=== PATIENT | male | born 1985 | race Caucasian/White ===

== ENCOUNTER 2023-12-29 08:11 | Emergency (ER) | payer BC, SELFPAY ==
[2023-12-29 08:20] VITALS: BP 159/85; PULSE 70; RESP 14; TEMP 36.7; O2SAT 100
--- NOTE | 2023-12-29 08:20 | ED.BACK ---
HPI - Back Pain/Injury General Chief Complaint: Back Pain/Injury Stated Complaint: Back pain Time Seen by Provider: 12/29/23 08:25 Source: patient, RN notes reviewed and old records reviewed Mode of arrival: ambulatory Limitations: no limitations History of Present Illness HPI Narrative: 38 year old male who presents to [facility] care with complaints of one week duration of lower back pain with no radiation of pain down buttock or legs or any voiced tingling or numbness of lower extremities. He reports that he was outside with kids and he bent over to get some snow and he felt a pop in his lower back and it took him to his knees. He reports that he did see his chiropractor this week and he did feel better till he bent over yesterday and began hurting again. Patient denies any difficulty with bowel or bladder function or any saddle parasthesia. Patient has been taking some Tylenol and Ibuprofen for his discomfort,has not yet taken any thing this morning for his discomfort. MD elicited complaint: back pain Pertinent past history: prior back pain Onset (ago): week(s) (1) Pain scale (0-10): 9 Similar Symptoms Previously: Yes Quality: sharp and throbbing Treatments prior to arrival: NSAIDS and acetaminophen Related Data Allergies Allergy/AdvReac Type Severity Reaction Status Date / Time No Known Allergies Allergy Mild Verified 06/29/22 15:15 Review of Systems Review of Systems: CONSTITUTIONAL: Denies fever, chills, or sweats. CARDIOVASCULAR: Denies chest pain, palpitations, or edema. RESPIRATORY: Denies cough or dyspnea. GASTROINTESTINAL: Denies abdominal pain, nausea, vomiting, or diarrhea. GENITOURINARY: Denies dysuria or hematuria. SKIN: Denies rash or itching. MUSCULOSKELETAL: Reports lower back pain. Joint pain or myalgia. NEUROLOGIC: Denies headache, numbness, or weakness. 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 There is no relevant family history pertinent to the presenting complaint Exam Narrative: GENERAL: Well-appearing, well-nourished, and in no acute distress. HEAD: Normocephalic, atraumatic. EYES: PERRLA and EOMI. NECK: Supple. No lymphadenopathy. CHEST: Clear to auscultation. No respiratory distress. SAO2 100% on room air HEART: Regular rate and rhythm. Distal pulses palpable and equal, cap refill <3 seconds ABDOMEN: Soft, nontender, nondistended, normal active bowel sounds, no palpable or pulsatile masses. No CVA tenderness MUSCULOSKELETAL: Normal range of motion and strength in all extremities; 5/5 strength with hip flexion and extension, dorsiflexion and extension, knee flexion and extension, plantar flexion and extension. Normal sensation in dermatomal distributions with sensitivity to light touch and pain. No midline back tenderness to palpation. No paraspinal tenderness. Transfers from lying to sitting to standing cautiously. Pain mainly over lower back with SI tenderness on palpation bilaterally SKIN: Warm, dry, no rash. No ecchymosis, erythema, open wounds to back. NEURO: No focal deficits. Alert and oriented x3. Reflexes intact. Normal gait. PSYCH: Normal mood and affect Course Course Emergency Course: Patient is aware of diagnosis, understands
== END 2023-12-29 08:43 | disposition home or self-care (01) ==
PROVIDERS: Emergency Provider Registered Nurse
DX: S39.012A Strain of muscle, fascia and tendon of lower back, initial encounter (principal); X50.9XXA Other and unspecified overexertion or strenuous movements or postures, initial encounter
CPT/HCPCS: 99213; G0463

== ENCOUNTER → 2024-01-01 08:50 | Outpatient (CLI) | payer BC, SELFPAY ==
--- NOTE | ~2024-01-01 | XR_ITS ---
EXAMINATION: XR lumbar spine 2-3V DATE: 01/01/2024 09:00 INDICATION: Low back pain TECHNIQUE: Anteroposterior and lateral views of the lumbar spine, and cone-down lateral view of the l umbosacral junction were obtained. COMPARISON: 11/29/2009 FINDINGS: Bone alignment is normal. There is no fracture. The vertebral body heights and intervertebr al disc spaces are maintained. There is mild facet joint osteoarthritis at L5-S1. IMPRESSION: 1. Mild lumbar spondylosis without acute findings. Reviewed, dictated and finalized at location L. 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
== END ==
PROVIDERS: PCP Internal Medicine; Visit Provider Nurse Practitioner
DX: M47.896 Other spondylosis, lumbar region (principal)
CPT/HCPCS: 72100

== ENCOUNTER 2024-01-14 10:05 | Outpatient (CLI) | payer BC, SELFPAY ==
--- NOTE | 2024-02-01 12:24 | WPDHOMESLEEP ---
Sleep Study - Home Unattended Date of Study: 01/14/24 Ordering Provider: Ann Aragon NP Interpreting Provider: Haydee Joyner MD Home Sleep Study Type: Watch PAT Height: 1.88 m Weight: 97.522 kg Body Mass Index: 27.6 Neck Circumference (inches): 15 [place]: 4 Reason for Sleep Study Daytime somnolence, snoring, hears him gasping at night Sleep History Sujit Dorsey II is a 38-year-old z[place] [facility] for complaints of excessive daytime sleepiness, snoring and report of his hearing him gasp during the night. The patient has back pain worsened by driving. No sleep survey was available to review to complete his sleep history. [facility] Past Medical History Medical History Allergies Family History Family History Grandparent Diabetes mellitus Father Hypertension Heart problem Social History Social History Smoking status: Never smoker Alcohol intake: never Substance use: never Lack of Transportation: No Lack of Food: Never True Current Housing: I Have Housing Concerned About Future Housing: No Difficulty Paying Gas/Electric Bills: No Difficulty Paying for Meds: No Currently Unemployed: No Education: Trade/Vocational Certificate Difficulty w/ Childcare or Family Care: No Living arrangements: with family Occupation/Education: occupation 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 Prior to using the device, the patient received verbal and written instructions for its application and was provided with the help desk phone number for additional telephonic instruction with 24-hour availability of qualified personnel to answer questions. Sleep Architecture The total recording time was 2 hours and 4 minutes with 49 minutes of sleep and a sleep latency of 16 minutes. A home sleep test needs a minimum of 4 hours in order to to be acceptable for interpretation. Respiratory Analysis NA Oximetry Data Lowest saturation obtained was 83%. Snoring Profile Snoring was present. Cardiac Profile No data is available. Assessment and Plan Assessment and Plan (1) Daytime somnolence: Code(s): R40.0 - Somnolence Status: Acute Assessment and Plan: This home sleep test using WatchPat on 01/14/2024 is not sufficient in length to evaluate for sleep disordered breathing or other sleep abnormalities. The length of time recording was 2 hours and 4 minutes with 49 minutes of sleep. A minimum of 4 hours of sleep is required to have enough data to interpret. Data The data obtained during this sleep study is NOT adequate for interpretation. Certification This sleep study has been reviewed by a board certified sleep medicine physician.
[2024-02-01 12:32] VITALS: BMI 27.6
== END 2024-01-18 15:00 | disposition home or self-care (01) ==
PROVIDERS: PCP Internal Medicine; Visit Provider Nurse Practitioner
DX: R40.0 Somnolence (principal)
CPT/HCPCS: 95806

== ENCOUNTER 2024-04-19 08:11 | Emergency (ER) | payer BC, SELFPAY ==
[2024-04-19 08:18] VITALS: BP 137/98; PULSE 108; RESP 20; TEMP 37.1; O2SAT 100
--- NOTE | 2024-04-19 08:35 | ED.BACK ---
HPI - Back Pain/Injury General Chief Complaint: Back Pain/Injury Stated Complaint: Back pain Time Seen by Provider: 04/19/24 08:30 Source: patient, RN notes reviewed and old records reviewed Mode of arrival: ambulatory Limitations: no limitations History of Present Illness HPI Narrative: 38 year old male who presents to [facility] care with complaints of bilateral lower back pain with most pain to the left side of his lower back, denies any paraspinal tenderness or any radiation of his pain down his legs. Patient has history of prior episodes of lower back since he was 21 years old. Patient reports that he has some muscle relaxers at home which he has cut in 4th and has been taking Tylenol and Ibuprofen for his pain. Pain is aggravated by any movement and bending.Patient denies any difficulty passing urine or stools, denies any saddle paraesthesia. Patient reports that he sees chiropractor twice a month and has had previous PT. MD elicited complaint: back pain Pertinent past history: prior back pain Onset (ago): day(s) (increased in past 2 days.) Severity: severe Similar Symptoms Previously: Yes Quality: sharp and aching Exacerbating factors: movement, walking and other (bending) Treatments prior to arrival: NSAIDS and acetaminophen Related Data Home Medications Medication Instructions Recorded Confirmed acetaminophen 500 mg tablet 500 mg PO Q6H PRN Back Pain 01/01/24 01/01/24 (Tylenol Extra Strength) Allergies Allergy/AdvReac Type Severity Reaction Status Date / Time No Known Allergies Allergy Mild Verified 01/01/24 08:31 Review of Systems Review of Systems: CONSTITUTIONAL: Denies fever, chills, or sweats. CARDIOVASCULAR: Denies chest pain, palpitations, or edema. RESPIRATORY: Denies cough or dyspnea. GASTROINTESTINAL: Denies abdominal pain, nausea, vomiting, or diarrhea. GENITOURINARY: Denies dysuria or hematuria. SKIN: Denies rash or itching. MUSCULOSKELETAL: Reports bilateral lower back pain. or myalgia. NEUROLOGIC: Denies headache, numbness, or weakness. All systems reviewed & are unremarkable except as noted in HPI and below PMFSH Past Medical History Medical History Allergies Chronic back pain Family History Family History Grandparent Diabetes mellitus Father Hypertension Heart problem Social History Social History Smoking status: Never smoker Alcohol intake: never Substance use: never Lack of Transportation: No Lack of Food: Never True Current Housing: I Have Housing Concerned About Future Housing: No Difficulty Paying Gas/Electric Bills: No Difficulty Paying for Meds: No Currently Unemployed: No Education: Trade/Vocational Certificate Difficulty w/ Childcare or Family Care: No Living arrangements: with family Occupation/Education: occupation 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 There is no relevant family history pertinent to the presenting complaint Exam Narrative: GENERAL: Well-appearing, well-nourished, and in some acute distress. HEAD: Normocephalic, atraumatic. EYES: PERRLA and EOMI. NECK: Supple. No lymphadenopathy. CHEST: Clear to auscultation. No respiratory distress. HEART: Regular rate and rhythm. Distal pulses palpable and equal, cap refill <3 seconds ABDOMEN: Soft, nontender, nondistended, normal active bowel sounds, no palpable or pulsatile masses. No CVA tenderness MUSCULOSKELETAL: Normal range of motion and strength in all extremities; 5/5 strength with hip flexion and extension, dorsiflexion and extension, knee flexion and extension, plantar flexion and extension. Normal sensation in dermatom
[2024-04-19 08:56] VITALS: BP 142/92; PULSE 104
== END 2024-04-19 09:00 | disposition home or self-care (01) ==
PROVIDERS: Emergency Provider Registered Nurse
DX: M54.50 Low back pain, unspecified (principal)
CPT/HCPCS: 99213; G0463